=== PATIENT | female | born 1965 | race Caucasian/White ===

== ENCOUNTER 2019-06-20 08:06 | Day surgery (SDC) | payer MEDICAID ==
[~2019-06-20] VITALS: Ht 165.1 cm; Wt 91.2 kg
[2019-06-20] MEDS ORDERED: ATOM80CA PO (08:40)
[2019-06-20] MEDS ORDERED: TETR15DR26 OP (08:40)
[2019-06-20] MEDS ORDERED: LITH150C8 PO (08:40)
[2019-06-20] MEDS ORDERED: LURA20TA PO (08:40)
[2019-06-20 08:52] VITALS: BP 148/95
[2019-06-20] MEDS ORDERED: LIDOcaine 1% 30ml preserv. free vial SQ ONE (09:10)
[2019-06-20 09:27] VITALS: BP 136/104
[2019-06-20 09:40] VITALS: BP 150/88
[2019-06-20 09:45] VITALS: BP 141/87
[2019-06-20 10:00] VITALS: BP 146/88
[2019-06-20 10:15] VITALS: BP 152/92
== END 2019-06-20 10:30 | disposition home or self-care (01) ==
LOC: SSTAY O 08:06
PROVIDERS: ATTEND Radiology Vascular & Interventional Radiology
DX: R59.0 Localized enlarged lymph nodes (principal); F31.9 Bipolar disorder, unspecified; F41.9 Anxiety disorder, unspecified; Z98.890 Other specified postprocedural states; Z88.8 Allergy status to other drugs, medicaments and biological substances; Z79.899 Other long term (current) drug therapy
CPT/HCPCS: 10005; 36415; 38505

== ENCOUNTER 2022-04-02 07:23 | Emergency (ER) | payer MEDICAID ==
[~2022-04-02] VITALS: Ht 162.6 cm; Wt 90.9 kg
[~2022-04-02 07:23] MED LIST: ATOM80CA PO; LITH150C8 PO; LURA20TA PO; TETR15DR26 OP
[2022-04-02 07:27] VITALS: BP 144/73
[2022-04-02] MEDS ORDERED: ONDA4TAB12 PO (08:08)
[2022-04-02] MEDS ORDERED: ondansetron 4mg rapidly disintigrating tab PO ONE (08:10)
== END 2022-04-02 08:40 | disposition home or self-care (01) ==
LOC: ER 07:24
DX: U07.1 COVID-19 (principal); Z88.8 Allergy status to other drugs, medicaments and biological substances
CPT/HCPCS: 71045; 99283